=== PATIENT | female | born 1955 | race Caucasian/White ===

== ENCOUNTER 2022-11-07 06:42 | Inpatient (IN) | payer BC, OTHER ==
[2022-11-07] VITALS (7 sets, daily range): BP systolic 124–143; BP diastolic 57–68; TEMP 97.3–97.9; O2SAT 94–98
[~2022-11-07] VITALS: Ht 165.1 cm; Wt 95.5 kg
[2022-11-07] MEDS ORDERED: SYNT25TA PO (06:50)
[2022-11-07] MEDS ORDERED: METO1TAB32 PO (06:50)
[2022-11-07] MEDS ORDERED: VIBE75TA PO (06:50)
[2022-11-07] MEDS ORDERED: LISI20TA33 PO (06:50)
[2022-11-07] MEDS ORDERED: ATOR1TAB19 PO (06:50)
[2022-11-07] MEDS ORDERED: FAMO40TA3 PO (06:50)
[2022-11-07 08:35] LABS: BASO # 0.1 10^3/uL (0.0-0.2); BASO % 0.2 % (0.0-1.0); HEMATOCRIT 41.6 % (36.0-47.0); HEMOGLOBIN 14.1 g/dl (12.0-15.5); LYMPH % 7.9 % (24.0-44.0); MEAN CORPUSCULAR HEMOGLOBIN 30.3 pg (27.0-33.0); MEAN CORPUSCULAR HGB CONC 33.9 g/dl (32.0-36.5); MEAN CORPUSCULAR VOLUME 89.5 fl (80.0-96.0); MONO % 3.7 % (2.0-8.0); NEUTROPHILS # 22.3 10^3/uL (1.5-8.5); NEUTROPHILS % 87.5 % (36.0-66.0); PLATELET COUNT, AUTOMATED 312 10^3/uL (150-450); RED BLOOD COUNT 4.65 10^6/uL (4.00-5.40); WHITE BLOOD COUNT 25.5 10^3/uL (4.0-10.0)
[2022-11-07 08:59] LABS: LIPASE 71 U/L (12-53)
[2022-11-07 09:01] LABS: ALBUMIN 3.6 G/DL (3.2-5.2); ALKALINE PHOSPHATASE 77 U/L (46-116); ALT/SGPT 39 U/L (7.0-40); AST/SGOT 71 U/L (<34); BILIRUBIN,DIRECT 0.3 MG/DL (<0.4); BLOOD UREA NITROGEN 15 MG/DL (9-23); CALCIUM LEVEL 10.5 MG/DL (8.3-10.6); CARBON DIOXIDE LEVEL 22 MMOL/L (20-31); CHLORIDE LEVEL 101 MMOL/L (98-107); CREATININE FOR GFR 0.76 MG/DL (0.55-1.30); GLOMERULAR FILTRATION RATE > 60.0 (>45); GLUCOSE, FASTING 273 MG/DL (74-106); POTASSIUM SERUM 3.8 MMOL/L (3.5-5.1); SODIUM LEVEL 137 MMOL/L (136-145); TOTAL PROTEIN 6.4 G/DL (5.7-8.2)
[2022-11-07] MEDS ORDERED: ONDANSETRON 4MG 2ML VIAL IV ONE (09:40)
[2022-11-07] MEDS ORDERED: NS 1,000 ML IV ONE (09:40)
[2022-11-07] MEDS ORDERED: ISOVUE-370 76% 100ML VIAL As Ordered ONE (09:58)
[2022-11-07] MEDS: MORPHINE 2 MG/ML 1ML VIAL IV PRN ×3 (10:40→20:53)
[2022-11-07] MEDS ORDERED: MED REC IN PROGRESS XX SCH (12:15)
[2022-11-07] MEDS ORDERED: LISI20TA37 PO (12:23)
[2022-11-07] MEDS ORDERED: oxyCODONE 5MG TAB PO PRN (12:25)
[2022-11-07] MEDS ORDERED: MEPERIDINE 25 MG/ML 1ML VIAL IV PRN (12:25)
[2022-11-07] MEDS ORDERED: ONDANSETRON 4MG 2ML VIAL IV PRN ×3 (12:25→15:15)
[2022-11-07] MEDS ORDERED: LR 1,000 ML IV SCH (12:25)
[2022-11-07] MEDS ORDERED: HOME MED LIST COMPLETE! XX SCH (12:25)
[2022-11-07] MEDS ORDERED: fentaNYL 100 MCG/2 ML INJECTION IV PRN ×2 (12:25→15:15)
[2022-11-07] MEDS ORDERED: HYDROMORPHONE HCL 0.5 MG/ 0.5 ML SYRINGE IV PRN ×2 (12:25→15:15)
[2022-11-07] MEDS ORDERED: ZOSYN 3.375GM VIAL As Ordered ONE (12:55)
[2022-11-07] MEDS ORDERED: fentaNYL 100 MCG/2 ML INJECTION As Ordered ONE (13:43)
[2022-11-07] MEDS ORDERED: HYDROmorphone HCL 2MG/ML 1ML VIAL As Ordered ONE (13:43)
[2022-11-07] MEDS ORDERED: ROCURONIUM BROMIDE 50MG/5ML VIAL As Ordered ONE (13:43)
[2022-11-07] MEDS ORDERED: LIDOCAINE 2% 100MG/5ML SDV (FOR ANES.) As Ordered ONE (13:43)
[2022-11-07] MEDS ORDERED: MIDAZOLAM INJ 2MG/2ML VIAL As Ordered ONE (13:43)
[2022-11-07] MEDS ORDERED: propofoL 200 MG/20 ML VIAL As Ordered ONE (13:43)
[2022-11-07] MEDS ORDERED: SUCCINYLCHOLINE 100MG/5ML SYRINGE As Ordered ONE (13:43)
[2022-11-07] MEDS ORDERED: LABETALOL 100MG/20ML VIAL As Ordered ONE (13:51)
[2022-11-07] MEDS ORDERED: SUGAMMADEX SODIUM 500 MG/5 ML VIAL (BRIDION) As Ordered ONE (14:22)
[2022-11-07] MEDS: NS 1,000 ML IV SCH ×2 (15:49→22:22)
[2022-11-07] MEDS ORDERED: FLUCONAZOLE 200 MG in IV 1 EA IV SCH (18:00)
[2022-11-07] MEDS: PANTOPRAZOLE 40MG VIAL IV SCH (20:53)
[2022-11-07] MEDS: SENOKOT S TAB PO SCH (20:53)
[2022-11-07] MEDS: ATORVASTATIN 10 MG TAB PO SCH (20:54)
[2022-11-07] MEDS: FAMOTIDINE 20 MG TAB PO SCH (20:54)
[2022-11-07] MEDS: METOPROLOL SUCC *XL* 25MG TAB (TopROL *XL*) PO SCH (21:01)
[2022-11-07] MEDS: PIPERACILLIN/TAZOBACTAM SOD 3.375 GM in D5W MINI-BAG PLUS 50 ML IV SCH (21:09)
[2022-11-08] VITALS (7 sets, daily range): BP systolic 97–123; BP diastolic 53–66; TEMP 97.7–99; O2SAT 90–94
[2022-11-08] MEDS: PIPERACILLIN/TAZOBACTAM SOD 3.375 GM in D5W MINI-BAG PLUS 50 ML IV SCH ×4 (02:10→21:12)
[2022-11-08] MEDS: MORPHINE 2 MG/ML 1ML VIAL IV PRN ×2 (02:10→08:05)
[2022-11-08] MEDS: LEVOTHYROXINE 25MCG TABLET (0.025MG) PO SCH (05:45)
[2022-11-08 05:48] LABS: HEMATOCRIT 31.9 % (36.0-47.0); MEAN CORPUSCULAR HEMOGLOBIN 30.1 pg (27.0-33.0); MEAN CORPUSCULAR HGB CONC 32.6 g/dl (32.0-36.5); MEAN CORPUSCULAR VOLUME 92.5 fl (80.0-96.0); RED BLOOD COUNT 3.45 10^6/uL (4.00-5.40); WHITE BLOOD COUNT 16.2 10^3/uL (4.0-10.0)
[2022-11-08] MEDS: NS 1,000 ML IV SCH ×2 (05:48→13:55)
[2022-11-08 05:56] LABS: HEMOGLOBIN 10.4 g/dl (12.0-15.5); PLATELET COUNT, AUTOMATED 180 10^3/uL (150-450)
[2022-11-08 06:14] LABS: ALKALINE PHOSPHATASE 64 U/L (46-116); ALT/SGPT 77 U/L (7.0-40); AST/SGOT 78 U/L (<34); BILIRUBIN,TOTAL 0.6 MG/DL (0.3-1.2); BLOOD UREA NITROGEN 13 MG/DL (9-23); CALCIUM LEVEL 7.9 MG/DL (8.3-10.6); CARBON DIOXIDE LEVEL 27 MMOL/L (20-31); CHLORIDE LEVEL 108 MMOL/L (98-107); CREATININE FOR GFR 0.61 MG/DL (0.55-1.30); GLOMERULAR FILTRATION RATE > 60.0 (>45); GLUCOSE, FASTING 122 MG/DL (74-106); MAGNESIUM LEVEL 1.8 MG/DL (1.8-2.4); POTASSIUM SERUM 3.8 MMOL/L (3.5-5.1); SODIUM LEVEL 143 MMOL/L (136-145); TOTAL PROTEIN 5.3 G/DL (5.7-8.2)
[2022-11-08] MEDS: FAMOTIDINE 20 MG TAB PO SCH ×2 (08:00→21:13)
[2022-11-08] MEDS: SENOKOT S TAB PO SCH ×2 (08:00→21:13)
[2022-11-08] MEDS: METOPROLOL SUCC *XL* 25MG TAB (TopROL *XL*) PO SCH ×2 (08:00→21:14)
[2022-11-08] MEDS: ENOXAPARIN 40MG/0.4ML SYRINGE (J1650 PER 10MG) SC SCH (08:01)
[2022-11-08] MEDS: PANTOPRAZOLE 40MG VIAL IV SCH ×2 (08:01→21:12)
[2022-11-08] MEDS ORDERED: PREVNAR-20 VACCINE 0.5ML SYRINGE IM.IMMUN ONE (09:00)
[2022-11-08] MEDS: FLUCONAZOLE 100 MG TAB PO SCH (12:46)
[2022-11-08] MEDS: KETOROLAC 30 MG/ML 1ML VIAL IV PRN (21:13)
[2022-11-08] MEDS: ATORVASTATIN 10 MG TAB PO SCH (21:13)
[2022-11-09] MEDS: NS 1,000 ML IV SCH ×4 (00:15→20:26)
[2022-11-09] MEDS: PIPERACILLIN/TAZOBACTAM SOD 3.375 GM in D5W MINI-BAG PLUS 50 ML IV SCH ×4 (02:15→20:22)
[2022-11-09 02:17] VITALS: O2SAT 92
[2022-11-09] MEDS: LEVOTHYROXINE 25MCG TABLET (0.025MG) PO SCH (06:01)
[2022-11-09 06:09] VITALS: BP 115/61; TEMP 97.9; O2SAT 92
[2022-11-09 06:29] LABS: HEMATOCRIT 29.8 % (36.0-47.0); HEMOGLOBIN 9.6 g/dl (12.0-15.5); MEAN CORPUSCULAR HEMOGLOBIN 30.7 pg (27.0-33.0); MEAN CORPUSCULAR HGB CONC 32.2 g/dl (32.0-36.5); MEAN CORPUSCULAR VOLUME 95.2 fl (80.0-96.0); PLATELET COUNT, AUTOMATED 136 10^3/uL (150-450); RED BLOOD COUNT 3.13 10^6/uL (4.00-5.40); WHITE BLOOD COUNT 10.6 10^3/uL (4.0-10.0)
[2022-11-09 06:52] LABS: ALBUMIN 2.8 G/DL (3.2-5.2); ALKALINE PHOSPHATASE 53 U/L (46-116); ALT/SGPT 55 U/L (7.0-40); AST/SGOT 45 U/L (<34); BILIRUBIN,TOTAL 0.5 MG/DL (0.3-1.2); BLOOD UREA NITROGEN 15 MG/DL (9-23); CALCIUM LEVEL 7.6 MG/DL (8.3-10.6); CARBON DIOXIDE LEVEL 27 MMOL/L (20-31); CHLORIDE LEVEL 108 MMOL/L (98-107); CREATININE FOR GFR 0.68 MG/DL (0.55-1.30); GLOMERULAR FILTRATION RATE > 60.0 (>45); GLUCOSE, FASTING 88 MG/DL (74-106); MAGNESIUM LEVEL 1.9 MG/DL (1.8-2.4); POTASSIUM SERUM 3.2 MMOL/L (3.5-5.1); SODIUM LEVEL 144 MMOL/L (136-145); TOTAL PROTEIN 4.9 G/DL (5.7-8.2)
[2022-11-09] MEDS: FAMOTIDINE 20 MG TAB PO SCH ×2 (07:59→20:22)
[2022-11-09] MEDS: SENOKOT S TAB PO SCH ×2 (07:59→20:25)
[2022-11-09] MEDS: FLUCONAZOLE 100 MG TAB PO SCH (07:59)
[2022-11-09] MEDS: ENOXAPARIN 40MG/0.4ML SYRINGE (J1650 PER 10MG) SC SCH (08:00)
[2022-11-09] MEDS: METOPROLOL SUCC *XL* 25MG TAB (TopROL *XL*) PO SCH ×2 (08:00→20:25)
[2022-11-09] MEDS: PANTOPRAZOLE 40MG VIAL IV SCH ×2 (08:00→20:22)
[2022-11-09] MEDS: KETOROLAC 30 MG/ML 1ML VIAL IV PRN (08:23)
[2022-11-09] MEDS: KCL 10MEQ/100ML SWI (KRUN) 10 MEQ in IV 1 EA IV SCH ×3 (13:17→18:07)
[2022-11-09 14:00] VITALS: BP 119/60; TEMP 97.9; O2SAT 92
[2022-11-09] MEDS: ATORVASTATIN 10 MG TAB PO SCH (20:22)
[2022-11-09 20:34] VITALS: BP 120/60; TEMP 98.1; O2SAT 94
[2022-11-10 00:01] VITALS: O2SAT 90
[2022-11-10] MEDS: PIPERACILLIN/TAZOBACTAM SOD 3.375 GM in D5W MINI-BAG PLUS 50 ML IV SCH ×2 (02:12→08:06)
[2022-11-10 04:22] VITALS: O2SAT 93
[2022-11-10] MEDS: LEVOTHYROXINE 25MCG TABLET (0.025MG) PO SCH (05:38)
[2022-11-10 05:42] VITALS: TEMP 99
[2022-11-10 05:56] LABS: HEMOGLOBIN 9.8 g/dl (12.0-15.5); MEAN CORPUSCULAR HEMOGLOBIN 30.5 pg (27.0-33.0); MEAN CORPUSCULAR HGB CONC 32.7 g/dl (32.0-36.5); MEAN CORPUSCULAR VOLUME 93.5 fl (80.0-96.0); PLATELET COUNT, AUTOMATED 155 10^3/uL (150-450); RED BLOOD COUNT 3.21 10^6/uL (4.00-5.40)
[2022-11-10 06:00] VITALS: BP 145/74; TEMP 98.3; O2SAT 94
[2022-11-10] MEDS: NS 1,000 ML IV SCH ×3 (06:13→23:35)
[2022-11-10 06:23] LABS: ALBUMIN 2.7 G/DL (3.2-5.2); ALKALINE PHOSPHATASE 53 U/L (46-116); ALT/SGPT 44 U/L (7.0-40); AST/SGOT 31 U/L (<34); BILIRUBIN,TOTAL 0.6 MG/DL (0.3-1.2); BLOOD UREA NITROGEN 8 MG/DL (9-23); CARBON DIOXIDE LEVEL 27 MMOL/L (20-31); CHLORIDE LEVEL 107 MMOL/L (98-107); CREATININE FOR GFR 0.67 MG/DL (0.55-1.30); GLOMERULAR FILTRATION RATE > 60.0 (>45); GLUCOSE, FASTING 89 MG/DL (74-106); MAGNESIUM LEVEL 1.9 MG/DL (1.8-2.4); POTASSIUM SERUM 3.1 MMOL/L (3.5-5.1); SODIUM LEVEL 143 MMOL/L (136-145)
[2022-11-10] MEDS: PANTOPRAZOLE 40MG VIAL IV SCH ×2 (08:06→20:30)
[2022-11-10] MEDS: FLUCONAZOLE 100 MG TAB PO SCH (08:06)
[2022-11-10] MEDS: FAMOTIDINE 20 MG TAB PO SCH ×2 (08:06→20:30)
[2022-11-10] MEDS: METOPROLOL SUCC *XL* 25MG TAB (TopROL *XL*) PO SCH ×2 (08:07→20:30)
[2022-11-10] MEDS: ENOXAPARIN 40MG/0.4ML SYRINGE (J1650 PER 10MG) SC SCH (08:07)
[2022-11-10] MEDS: SENOKOT S TAB PO SCH ×2 (08:08→20:39)
[2022-11-10] MEDS ORDERED: POTASSIUM CHLORIDE 10MEQ SR TABLET PO ONE (12:00)
[2022-11-10] MEDS: AUGMENTIN 875 MG TAB PO SCH ×2 (13:35→20:35)
[2022-11-10 14:00] VITALS: BP 136/66; TEMP 97.9; O2SAT 93
[2022-11-10] MEDS: GASTROGRAFIN SOLUTION 30ML PO SCH ×2 (15:40→16:05)
[2022-11-10] MEDS ORDERED: ISOVUE-370 76% 100ML VIAL As Ordered ONE (16:25)
[2022-11-10] MEDS: KETOROLAC 30 MG/ML 1ML VIAL IV PRN (17:48)
[2022-11-10 19:55] VITALS: BP 123/55; TEMP 97.9; O2SAT 92
[2022-11-10] MEDS: ATORVASTATIN 10 MG TAB PO SCH (20:29)
[2022-11-11 06:03] VITALS: BP 132/75; TEMP 97.3; O2SAT 93
[2022-11-11] MEDS: LEVOTHYROXINE 25MCG TABLET (0.025MG) PO SCH (06:17)
[2022-11-11] MEDS: NS 1,000 ML IV SCH (06:19)
[2022-11-11 06:48] LABS: HEMATOCRIT 30.9 % (36.0-47.0); HEMOGLOBIN 10.3 g/dl (12.0-15.5); MEAN CORPUSCULAR HEMOGLOBIN 31.2 pg (27.0-33.0); MEAN CORPUSCULAR HGB CONC 33.3 g/dl (32.0-36.5); MEAN CORPUSCULAR VOLUME 93.6 fl (80.0-96.0); PLATELET COUNT, AUTOMATED 166 10^3/uL (150-450); WHITE BLOOD COUNT 7.9 10^3/uL (4.0-10.0)
[2022-11-11 07:19] LABS: ALBUMIN 2.7 G/DL (3.2-5.2); ALKALINE PHOSPHATASE 57 U/L (46-116); ALT/SGPT 40 U/L (7.0-40); AST/SGOT 28 U/L (<34); BILIRUBIN,TOTAL 0.6 MG/DL (0.3-1.2); BLOOD UREA NITROGEN 6 MG/DL (9-23); CALCIUM LEVEL 7.8 MG/DL (8.3-10.6); CARBON DIOXIDE LEVEL 28 MMOL/L (20-31); CHLORIDE LEVEL 109 MMOL/L (98-107); CREATININE FOR GFR 0.63 MG/DL (0.55-1.30); GLOMERULAR FILTRATION RATE > 60.0 (>45); GLUCOSE, FASTING 90 MG/DL (74-106); MAGNESIUM LEVEL 1.9 MG/DL (1.8-2.4); POTASSIUM SERUM 3.4 MMOL/L (3.5-5.1); SODIUM LEVEL 145 MMOL/L (136-145)
[2022-11-11 08:00] VITALS: BP 135/74; TEMP 97.5; O2SAT 94
[2022-11-11] MEDS: ENOXAPARIN 40MG/0.4ML SYRINGE (J1650 PER 10MG) SC SCH (09:00)
[2022-11-11] MEDS: SENOKOT S TAB PO SCH ×2 (09:00→09:13)
[2022-11-11] MEDS: FAMOTIDINE 20 MG TAB PO SCH (09:11)
[2022-11-11] MEDS: METOPROLOL SUCC *XL* 25MG TAB (TopROL *XL*) PO SCH (09:11)
[2022-11-11] MEDS: FLUCONAZOLE 100 MG TAB PO SCH (09:12)
[2022-11-11 09:13] VITALS: BP 135/74
[2022-11-11] MEDS: AUGMENTIN 875 MG TAB PO SCH (09:13)
[2022-11-11] MEDS: PANTOPRAZOLE 40MG VIAL IV SCH (09:19)
== END 2022-11-11 12:00 | disposition home or self-care (01) | DRG 253 ==
LOC: M ED 06:42 → M SDC 12:28 → M MSPAV 13:04 → M SDC 15:37
PROVIDERS: ADMIT Surgery; ATTEND Surgery
PROC: 8E0W4CZ Robotic Assisted Procedure of Trunk Region, Percutaneous Endoscopic Approach (ICD-10-PCS; 2022-11-07)
PROC: 0DB64ZX Excision of Stomach, Percutaneous Endoscopic Approach, Diagnostic (ICD-10-PCS; principal; 2022-11-07 12:19)
DX: K66.1 Hemoperitoneum (principal); E87.6 Hypokalemia; K21.9 Gastro-esophageal reflux disease without esophagitis; K31.89 Other diseases of stomach and duodenum; Z90.49 Acquired absence of other specified parts of digestive tract; Z79.890 Hormone replacement therapy; Z79.899 Other long term (current) drug therapy; Z91.013 Allergy to seafood; Z20.822 Contact with and (suspected) exposure to COVID-19